=== PATIENT | female | born 1940 | race Caucasian/White ===

== ENCOUNTER 2016-05-19 08:50 | Day surgery (SDC) | payer OTHER, MEDICARE ==
[~2016-05-19] VITALS: Ht 167.6 cm; Wt 84.0 kg
[~2016-05-19 08:50] MED LIST: 0.9% Sodium Chloride 1,000 ML IV SCH; AGM875T PO; ASPI325T32 PO; CALC-78 PO; CHOL10008 PO; FLUT9.9S NS; LEVO150T5 PO; LOPRESSOR25 MG PO; LOSA25TA21 PO; LOVA10TA PO; METF500T4 PO; Sodium Chloride LOK Flush 10 mL Syringe IV PRN; fentaNYL-PF 50 mCg/mL 2 mL Inj IVPUSH PRN
[2016-05-19 09:27] VITALS: BP 131/78; PULSE 105; RESP 16; O2SAT 96
[2016-05-19 10:08] VITALS: BP 114/68; PULSE 84; RESP 14; O2SAT 94
[2016-05-19 10:17] VITALS: BP 103/65; PULSE 85; RESP 16; O2SAT 94
--- NOTE | 2016-05-19 10:29 | ENDO ---
[address] [address] ENDOSCOPY PROCEDURE PATIENT: ALIVIA ORELLANA : 1940 MR#: [id number] ADMIT: 05/19/2016 JOB ID: [id number] DATE OF SERVICE: 05/19/2016 PROCEDURE PERFORMED: Colonoscopy. INDICATIONS: Screening. ASA CLASSIFICATION: The patient's ASA classification is II. MALLAMPATI SCORE: Mallampati score was 2. MEDICATIONS: 1. Versed 5 mg. 2. Fentanyl 100 mcg. INSTRUMENT USED: PCF-H180AL. PREPARATION QUALITY: Good. PROCEDURE DETAILS: After informed consent was obtained, the patient was brought into the GI suite, where she was placed on oxygen via nasal cannula and monitored with continuous pulse oximeter, telemetry, and blood pressure monitoring. A time-out was performed. Then, she was placed in the left lateral decubitus position and medications were administered for sedation. Digital rectal exam was performed which was unremarkable. The colonoscope was then inserted into the rectum and advanced under direct visualization to the cecum, which was identified by the presence of the ileocecal valve and appendiceal orifice. Once the cecum was reached, the colonoscope was withdrawn back into the rectum, as the mucosa and lumen were examined. In the rectum, retroflexion was performed. Following retroflexion, remaining air in the rectum was suctioned, and procedure was completed. FINDINGS: 1. In the transverse colon, there was a diminutive polyp that was removed with cold biopsy forceps. 2. Scattered diverticula were seen throughout the left side of the colon. 3. Retroflexed views in the rectum revealed small internal hemorrhoids. IMPRESSION: 1. Transverse colon polyp. 2. Left-sided diverticulosis. 3. Small internal hemorrhoids. RECOMMENDATIONS: 1. Fiber-rich diet. 2. Repeat colonoscopy pending polyp pathology results. COMPLICATIONS: None. ESTIMATED BLOOD LOSS: Less than 5 mL.
--- NOTE | 2016-05-20 14:51 | PATH ---
SURGICAL PATHOLOGY Attending Physician:Rochelle Diop CASE STATUS: Signed Out PATIENT NAME: ALIVIA ORELLANA PID: [id number] : 1940 DATE COLLECTED:05/19/2016 16:52 SPECIMEN: Colon, Biopsy CLINICAL HISTORY: A: TRANSVERSE COLON POLYP FINAL DIAGNOSIS: 1.TRANSVERSE COLON POLYP: CHANGES CONSISTENT WITH TUBULAR ADENOMA. ICD10 CODE D12.3 GROSS DESCRIPTION: The specimen is received in formalin, labeled with the patient's name, sublabeled as transverse polyp and consists of a jeffery-white semitranslucent rubbery glistening sessile polyp (0.3 x 0.1 x 0.1 cm in). Section code: (A) intact polyp. Specimen entirely submitted. 05/19/16 JM MICRO DESCRIPTION: See diagnosis. ICD-9 CODES: CPT CODES: 1: 26719 Electronically Signed Out Jerrell Alicea MD [facility] [address] [facility], [place] [address] Technical component performed at [facility], [facility] [address], [address]
== END 2016-05-19 23:59 | disposition home or self-care (01) ==
LOC: END 08:50
PROVIDERS: ATTEND Internal Medicine Gastroenterology
DX: Z12.11 Encounter for screening for malignant neoplasm of colon (principal); D12.3 Benign neoplasm of transverse colon; K57.92 Diverticulitis of intestine, part unspecified, without perforation or abscess without bleeding; K64.8 Other hemorrhoids; E11.9 Type 2 diabetes mellitus without complications; I10 Essential (primary) hypertension; G47.33 Obstructive sleep apnea (adult) (pediatric)
CPT/HCPCS: 45380; G0500; J2250; J7030